=== PATIENT | male | born 1985 | race Hispanic/Latino ===

== ENCOUNTER 2017-01-14 22:29 | Emergency (ER) | payer SELFPAY ==
[~2017-01-14] VITALS: Ht 162.6 cm; Wt 72.6 kg
--- NOTE | 2017-01-14 23:13 | ED EENT ---
History of Present Illness General Chief Complaint: Foreign Body Stated Complaint: BUG IN EAR Nursing Triage Note: PT STATES HE WAS OUTSIDE AND FELT A BUG FLY INTO HIS RIGHT EAR, HE CAN FEEL IT AND HEAR IT NOW. APPROX. 2200 TODAY. History of Present Illness Time seen by provider: 22:50 Initial Comments patient states that he felt a bug fly into his right ear, he has been unable to remove it. Timing/Duration: abrupt Location: ear (R) Prearrival Treatment: no prearrival treatment Associated Symptoms: denies symptoms Allergies and Home Medications Allergies Coded Allergies: No Known Drug Allergies (Unverified , 01/14/17) Home Medications No Active Prescriptions or Reported Meds Review of Systems Constitutional: no symptoms reported, see HPI Eyes: No Symptoms Reported, See HPI Ears: See HPI, Other (warm body right ear) Nose: no symptoms reported, see HPI Mouth: no symptoms reported, see HPI Throat: no symptoms reported, see HPI Respiratory: no symptoms reported, see HPI Cardiovascular: no symptoms reported, see HPI Gastrointestinal: no symptoms reported, see HPI Musculoskeletal: no symptoms reported, see HPI Skin: no symptoms reported, see HPI Neurological: No Symptoms Reported, See HPI Hematologic/Lymphatic: No Symptoms Reported, See HPI Immunological/Allergic: no symptoms reported, see HPI All Other Systems Reviewed Negative Unless Noted: Yes Past Ziddlch-Mlliwl-Rtwqgq Hx Patient Social History Alcohol Use: Denies Use Recreational Drug Use: No Smoking Status: Never a Smoker 2nd Hand Smoke Exposure: No Recent Foreign Travel: No Contact w/Someone Who Travel: No Recent Infectious Disease Expo: No Recent Hopitalizations: No Immunizations Up To Date PED Vaccines UTD: No Seasonal Allergies Seasonal Allergies: No Physical Exam Vital Signs Vital Sign - Last 12Hours 01/14/17 22:43 Temp 98.3 Pulse 71 Resp 20 B/P (MAP) 130/88 Pulse Ox 97 O2 Delivery Room Air General Appearance: WD/WN, no apparent distress Eyes: bilateral eye EOMI, bilateral eye PERRL, bilateral eye normal inspection Ears: right ear canal normal (insect noted with impacted cerumen anterior canal ), bilateral ear TM normal, bilateral ear auricle normal Nose: normal inspection, No active bleeding, No discharge Mouth/Throat: normal mouth inspection, pharynx normal Cardiovascular: normal peripheral pulses, regular rate, rhythm, no murmur Neurologic/Psychiatric: no motor/sensory deficits, alert, normal mood/affect, oriented x 3 Progress/Results/Core Measures Results/Orders Vital Signs/I&O Vital Sign - Last 12Hours 01/14/17 22:43 Temp 98.3 Pulse 71 Resp 20 B/P (MAP) 130/88 Pulse Ox 97 O2 Delivery Room Air Blood Pressure Mean: 102 Progress Note : Time: 22:50 Progress Note insect visualized in the right anterior ear canal, impacted in cerumen. Irrigated with normal saline, foreign body still in place. Ear curet used, part of all insect removed. Small amount of insect still intact in the cerumen. using fine-tipped suction, able to remove the remainder of the insect and some cerumen. The ear canal was irrigated with 30 mils of peroxide. The patient tolerated the procedure well he did note slight decreased hearing in the right ear compared to the left. Departure Impression Impression: Primary Impression: Foreign body of ear, right Qualified Codes: T16.1XXA - Foreign body in right ear, initial encounter Disposition: 01 HOME, SELF-CARE Condition: Improved Departure-Patient Inst. Decision time for Depature: 23:10 Patient Instructions: Ear Wax Impaction (DC), Foreign Body in Ear, Child Add. Discharge Instructions: clean right ear with peroxide 4 times a day. return to emergency department for ear pain, decreased hearing, or new problems. All discharge instructions reviewed with patient and/or family. Voiced understanding. Scripts No Active Prescriptions or Reported Meds REBECCA NAVARRO Jan 14, 2017 23:13
[2017-01-14 23:34] VITALS: BP 130/88
== END 2017-01-14 23:34 | disposition home or self-care (01) ==
LOC: ER 22:34
DX: T16.1XXA Foreign body in right ear, initial encounter (principal)
CPT/HCPCS: 99282

== ENCOUNTER 2018-05-02 11:18 | Emergency (ER) | payer SELFPAY ==
[~2018-05-02] VITALS: Ht 162.6 cm; Wt 72.6 kg
[2018-05-02] MEDS ORDERED: KETOROLAC 60 MG/2 ML VIAL IM ONE (12:00)
[2018-05-02] MEDS ORDERED: ORPHENADRINE 60 MG/2 ML (NORFLEX) AMP IM ONE (12:00)
--- NOTE | 2018-05-02 12:03 | ED Back Pain ---
General Chief Complaint: Back Problems Stated Complaint: BACK INJ Nursing Triage Note: pt states he injured his back two years ago. 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 reporting middle and lower back pain. Nursing Sepsis Screen: No Definite Risk Source of Information: Patient Exam Limitations: No Limitations History of Present Illness Date Seen by Provider: May 02, 2018 Time Seen by Provider: 11:45 Initial Comments Patient is a 32-year-old male who presents to the emergency room with complaints of lower left back pain. He reports that 2 years ago he injured his back and has been having flareups ever since but it became worse yesterday when he was trying to start his leaf blower and pulling on the string he felt a pop in his lower back and has been experiencing pain ever since. He denies loss of bowel or bladder or saddle paresthesia. Location: Lumbar Spine Timing/Duration: 1-2 Days Pain/Injury Location: Back Associated Symptoms: No numbness in legs/feet, No tingling in legs/feet; lower back pain; No loss of bladder control, No loss of bowel control Allergies and Home Medications Allergies Coded Allergies: No Known Drug Allergies (Unverified , 01/14/17) Home Medications Cyclobenzaprine HCl 10 Mg Tablet, 10 MG PO Q8H Prescribed by: MIKHAIL GUADALUPE on 05/02/18 1330 Prednisone 20 Mg Tab, 40 MG PO DAILY Prescribed by: MIKHAIL GUADALUPE on 05/02/18 1330 Patient Home Medication List Home Medication List Reviewed: Yes Review of Systems Constitutional: see HPI; No chills, No fever Musculoskeletal: see HPI, back pain All Other Systems Reviewed Negative Unless Noted: Yes Past Vucfeig-Yqdwka-Mywlgz Hx Past Med/Social Hx: Reviewed Nursing Past Med/Soc Hx Patient Social History 2nd Hand Smoke Exposure: No Recent Foreign Travel: No Contact w/Someone Who Travel: No Recent Infectious Disease Expo: No Recent Hopitalizations: No Immunizations Up To Date PED Vaccines UTD: No Seasonal Allergies Seasonal Allergies: No Past Medical History Surgeries: No Respiratory: No Cardiac: No Neurological: No Genitourinary: No Gastrointestinal: No Musculoskeletal: No Endocrine: No HEENT: No Cancer: No Psychosocial: No Integumentary: No Blood Disorders: No Family Medical History Reviewed Nursing Family Hx Physical Exam Vital Signs Vital Signs - First Documented 05/02/18 11:28 Temp 98.2 Pulse 65 Resp 20 B/P (MAP) 132/74 (93) Pulse Ox 99 O2 Delivery Room Air Capillary Refill : Less Than 3 Seconds Height, Weight, BMI Height: 5'4.00" Weight: 160lbs. oz. 72.518544ch; BMI Method:Stated General Appearance: No Apparent Distress, WD/WN Neck: Full Range of Motion, Normal Inspection, Non Tender, Supple Cardiovascular: Regular Rate, Rhythm, No Edema, No Gallop, No JVD, No Murmur, Normal Peripheral Pulses Respiratory: Chest Non Tender, Lungs Clear, Normal Breath Sounds, No Accessory Muscle Use, No Respiratory Distress, Accessory Muscle Use Gastrointestinal: Normal Bowel Sounds, No Organomegaly, No Pulsatile Mass, Non Tender, Soft Back: Normal Inspection, No CVA Tenderness Neurologic/Psychiatric: Alert, Oriented x3, Normal Mood/Affect Skin: Normal Color, Warm/Dry Progress/Results/Core Measures Results/Orders My Orders Orders - MIKHAIL GUADALUPE Ketorolac Injection (Toradol Injection) (05/02/18 12:00) Orphenadrine Injection (Norflex Injectio (05/02/18 12:00) Ct Lumbar Spine Wo (05/02/18 11:58) Medications Given in ED Vital Signs/I&O 05/02/18 05/02/18 11:28 13:34 Temp 98.2 98.2 Pulse 65 65 Resp 20 20 B/P (MAP) 132/74 (93) 132/74 (93) Pulse Ox 99 99 O2 Delivery Room Air Blood Pressure Mean: 93 Progress Progress Note : Time: 13:25 Progress Note I have seen and evaluated the patient. He is having a relief of pain at this time. He was informed of normal imaging studies. He agrees with plan for discharge, close follow up with PCP. Return precautions were given. 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 TECHNIQUE: Multiple contiguous axial images were obtained through the lumbar spine without the use of intravenous contrast. Sagittal and coronal reformations were then performed. INDICATION: Lower lumbar pain. Previous fall. COMPARISON: None FINDINGS: For the purposes of this exam, last well-formed disc space is denoted the L5-S1 level. Static alignment is maintained. There is no significant anterolisthesis or retrolisthesis. There is no evidence of jumped facets. Vertebral body heights are maintained as well. There is no evidence of acute fracture. No bony fragments are seen within the spinal canal. Intervertebral disc heights are fairly well-maintained. Evaluation of spinal canal is suboptimal secondary to CT modality and lack of intrathecal contrast, but no gross filling defects are identified within the spinal canal. Pre-and paravertebral soft tissue structures are unremarkable. IMPRESSION: 1. Unremarkable CT of the lumbar spine. Dictated by: Dictated on workstation # [id number] Dict: 05/02/18 1307 Trans: 05/02/18 1705 Interpreted by: JOSEF VANCE MD Electronically signed by: JOSEF VANCE MD 05/02/18 1705 Reviewed: Reviewed by Me Departure Impression Primary Impression: Lumbar back sprain Disposition: 01 HOME, SELF-CARE Condition: Stable/Unchanged Departure-Patient Inst. Decision time for Depature: 13:28 Referrals: VIVIAN SANTOS DO Patient Instructions: Lumbar Muscle Strain (DC), Low Back Pain (DC) Add. Discharge Instructions: Take medications as directed. You may use ibuprofen and Tylenol as directed by the bottle for pain relief. Follow up with [facility] within 1 week for recheck. Return back to the emergency room for any worsening pain, numbness or tingling, loss of bowel or bladder, or any worsening symptoms or concerns as needed. All discharge instructions reviewed with patient and/or family. Voiced understanding. Scripts Prednisone (Prednisone) 20 Mg Tab 40 MG PO DAILY for 3 Days, #6 TAB Prov: MIKHAIL GUADALUPE 05/02/18 Cyclobenzaprine HCl (Cyclobenzaprine HCl) 10 Mg Tablet 10 MG PO Q8H for muscle spasms, #14 TAB Prov: MIKHAIL GUADALUPE 05/02/18 MIKHAIL GUADALUPE May 02, 2018 12:03
--- NOTE | 2018-05-02 13:14 | Diagnostic Imaging Report ---
PROCEDURE: CT lumbar spine without contrast. TECHNIQUE: Multiple contiguous axial images were obtained through the lumbar spine without the use of intravenous contrast. Sagittal and coronal reformations were then performed. INDICATION: Lower lumbar pain. Previous fall. COMPARISON: None FINDINGS: For the purposes of this exam, last well-formed disc space is denoted the L5-S1 level. Static alignment is maintained. There is no significant anterolisthesis or retrolisthesis. There is no evidence of jumped facets. Vertebral body heights are maintained as well. There is no evidence of acute fracture. No bony fragments are seen within the spinal canal. Intervertebral disc heights are fairly well-maintained. Evaluation of spinal canal is suboptimal secondary to CT modality and lack of intrathecal contrast, but no gross filling defects are identified within the spinal canal. Pre-and paravertebral soft tissue structures are unremarkable. IMPRESSION: 1. Unremarkable CT of the lumbar spine. Dictated by: Dictated on workstation # [id number]
[2018-05-02] MEDS ORDERED: PRD20T PO (13:30)
[2018-05-02] MEDS ORDERED: CYCL10TA9 PO (13:30)
[2018-05-02 13:34] VITALS: BP 132/74
== END 2018-05-02 13:33 | disposition home or self-care (01) ==
LOC: EDUNIT# 11:18 → ER 11:19
DX: S33.5XXA Sprain of ligaments of lumbar spine, initial encounter (principal); X50.1XXA Overexertion from prolonged static or awkward postures, initial encounter
CPT/HCPCS: 72131